=== PATIENT | female | born 1955 | race African-American/Black ===

== ENCOUNTER 2021-12-07 05:03 | Observation (INO) | payer MEDICARE ==
[~2021-12-07] VITALS: Ht 157.5 cm; Wt 50.8 kg
[~2021-12-07 05:03] MED LIST: AMILORIDE HCL-1 EACH; AMLODIPINE BESYL5 MG PO; ATORVASTATIN CA20 MG PO; ETODOLAC300 MG PO; LIPITOR20 MG PO; LODINE; METFORMIN HCL500 MG PO; METOPROLOL SUCC50 MG PO; NEURONTIN300 MG PO; VICODIN HP 10-1 EAC1 PO
[2021-12-07] MEDS ORDERED: SODIUM CHLORIDE 0.9% 50ML 100 ML ONE (05:58)
[2021-12-07 06:03] LABS: BASOPHILS % 0.3 % (0.0-1.0); EOSINOPHILS # (AUTO) 0.1 (0.0-0.4); EOSINOPHILS % 0.7 % (0.0-6.0); HEMATOCRIT 38.4 % (34.2-44.1); HEMOGLOBIN 12.1 g/dL (12.0-16.0); LYMPHOCYTES # (AUTO) 2.4 (1.0-3.2); LYMPHOCYTES % 20.6 % (18.0-39.1); MEAN CORPUSCULAR HEMOGLOBIN 28.1 pg (28-32); MEAN CORPUSCULAR HGB CONC 31.5 g/dL (31-35); MEAN CORPUSCULAR VOLUME 89.1 fL (81-99); MONOCYTES # (AUTO) 0.8 (0.2-0.8); MONOCYTES % 6.6 % (4.4-11.3); NEUTROPHILS # (AUTO) 8.4 (2.1-6.9); NEUTROPHILS % 71.5 % (38.7-80.0); PLATELET COUNT 413 x10e3/uL (140-360); RED BLOOD COUNT 4.31 x10e6/uL (3.6-5.1); RED CELL DISTRIBUTION WIDTH 12.8 % (11.7-14.4)
[2021-12-07] MEDS ORDERED: CELECOXIB 200 MG CAP ONE (06:12)
[2021-12-07] MEDS ORDERED: DEXAMETHASONE SOD PHOS 10 MG/1 ML VIAL ONE (06:12)
[2021-12-07] MEDS ORDERED: GABAPENTIN 300 MG CAP ONE (06:13)
[2021-12-07 06:21] LABS: ANION GAP 14.8 mmol/L (8-16); CALCIUM 10.3 mg/dL (8.4-10.2); CREATININE, SERUM 0.7 mg/dL (0.57-1.11); POTASSIUM 3.8 mmol/L (3.5-5.1)
[2021-12-07] MEDS ORDERED: SODIUM CHLORIDE 0.9% 500ML 500 ML ONE (06:52)
[2021-12-07] MEDS ORDERED: Vancomycin IV 1,000 MG ONE (06:52)
[2021-12-07] MEDS ORDERED: TRANEXAMIC ACID 1,000 MG/10 ML ML ONE (06:53)
[2021-12-07] MEDS ORDERED: ROPIVACAINE 246.25 MG, EPINEPHRINE HCL 1:1000 1ML 0.5 MG, CLONIDINE HCL 0.08 MG, KETORO... INJ ONE ×5 (08:00)
[2021-12-07] MEDS ORDERED: DIPHENHYDRAMINE HCL INJ 50 MG/ML VIAL IV PRN (09:15)
[2021-12-07] MEDS ORDERED: KETOROLAC TROMETHAMINE 30 MG/ML VIAL IV PRN (09:15)
[2021-12-07] MEDS ORDERED: SODIUM CHLORIDE 0.9% 1000ML 1,000 ML IV SCH (09:15)
[2021-12-07] MEDS ORDERED: ONDANSETRON HCL INJ 2MG/ML 2ML 2 MG/ML VIAL IV PRN (09:15)
[2021-12-07] MEDS ORDERED: ACETAMINOPHEN 650 MG SUPP PR PRN (09:15)
[2021-12-07] MEDS ORDERED: HYDROCODONE/APAP 5MG-325MG TAB PO PRN (09:15)
[2021-12-07] MEDS ORDERED: DOCUSATE SODIUM 100 MG CAP PO PRN (09:15)
[2021-12-07 11:26] VITALS: BP 138/66
[2021-12-07 11:42] VITALS: BP 138/66
[2021-12-07] MEDS: HYDROCODONE/APAP 7.5MG-325MG 1 EA TAB PO PRN ×2 (12:04→17:54)
[2021-12-07] MEDS ORDERED: BUPIVACAINE HCL 0.5% INJ 30 ML VIAL INJ ONE (13:14)
[2021-12-07] MEDS ORDERED: LIDOCAINE 2% /EPINEPHRINE 20 ML SDV INJ ONE (13:14)
[2021-12-07] MEDS ORDERED: PROPOFOL IV EMULSION 10 MG/ML 20 ML VIAL ONE (13:23)
[2021-12-07] MEDS ORDERED: POVIDONE IODINE 0.05% 0.05 % ML PO ONE (13:23)
[2021-12-07 13:34] LABS: BASOPHILS % 0.1 % (0.0-1.0); HEMATOCRIT 32.3 % (34.2-44.1); HEMOGLOBIN 10.2 g/dL (12.0-16.0); LYMPHOCYTES # (AUTO) 0.8 (1.0-3.2); LYMPHOCYTES % 5.6 % (18.0-39.1); MEAN CORPUSCULAR HEMOGLOBIN 27.9 pg (28-32); MEAN CORPUSCULAR HGB CONC 31.6 g/dL (31-35); MEAN CORPUSCULAR VOLUME 88.3 fL (81-99); MONOCYTES # (AUTO) 0.2 (0.2-0.8); MONOCYTES % 1.7 % (4.4-11.3); NEUTROPHILS # (AUTO) 12.4 (2.1-6.9); NEUTROPHILS % 92.2 % (38.7-80.0); PLATELET COUNT 402 x10e3/uL (140-360); RED BLOOD COUNT 3.66 x10e6/uL (3.6-5.1); RED CELL DISTRIBUTION WIDTH 12.8 % (11.7-14.4)
[2021-12-07] MEDS ORDERED: FENTANYL CITRATE/PF 100MCG/2 ML INJ ONE (13:37)
[2021-12-07] MEDS ORDERED: MIDAZOLAM HCL 2 MG/2 ML VIAL ONE (13:37)
[2021-12-07 13:55] LABS: CALCIUM 9.8 mg/dL (8.4-10.2); CREATININE, SERUM 0.81 mg/dL (0.57-1.11)
[2021-12-07 15:42] VITALS: BP 138/62
[2021-12-07] MEDS ORDERED: Cefazolin 1 GM in SODIUM CHLORIDE 0.9% 50ML 50 ML IV SCH (16:00)
[2021-12-07] MEDS ORDERED: ASPIRIN 325 MG TAB PO SCH (17:00)
[2021-12-07] MEDS ORDERED: CELECOXIB 100 MG CAP PO SCH (17:00)
[2021-12-07] MEDS ORDERED: ONDANSETRON HCL 4 MG ORAL DISINTEGRATING TAB PO PRN (18:00)
[2021-12-07] MEDS ORDERED: ACETAMINOPHEN 1000 MG/100 ML IV PRN (18:00)
[2021-12-07] MEDS ORDERED: ZOLPIDEM TARTRATE 5 MG TAB PO PRN (21:00)
[2021-12-08] MEDS ORDERED: CELECOXIB 200 MG CAP PO SCH (09:00)
== END 2021-12-07 18:27 | disposition home or self-care (01) ==
LOC: OR 05:03 → PACU V 10:05 → MED/SURG 11:10
PROVIDERS: ADMIT Specialist; ATTEND Specialist
DX: M16.0 Bilateral primary osteoarthritis of hip (principal); Z20.822 Contact with and (suspected) exposure to COVID-19; Z01.818 Encounter for other preprocedural examination; I10 Essential (primary) hypertension; E78.5 Hyperlipidemia, unspecified; D64.9 Anemia, unspecified; F17.210 Nicotine dependence, cigarettes, uncomplicated; E11.9 Type 2 diabetes mellitus without complications; E78.00 Pure hypercholesterolemia, unspecified; M85.80 Other specified disorders of bone density and structure, unspecified site; E11.42 Type 2 diabetes mellitus with diabetic polyneuropathy; G89.29 Other chronic pain
CPT/HCPCS: 27130; 36415; 71046; 72170; 80048; 82948; 85025; 86850; 86900; 86920 ×2; 93005; 97116; 97139; 97162; 97530; C1713; C1776 ×2; G0378; J0171; J0690; J1100; J1885; J2001; J2250; J2704; J2795; J3010; J3370; J7030; J7040; U0002

== ENCOUNTER → 2022-04-07 | Day surgery (SDC) | payer MEDICARE ==
[2022-04-05 12:56] LABS: BASOPHILS % 0.2 % (0.0-1.0); EOSINOPHILS # (AUTO) 0.1 (0.0-0.4); EOSINOPHILS % 1.2 % (0.0-6.0); HEMATOCRIT 36.5 % (34.2-44.1); HEMOGLOBIN 10.9 g/dL (12.0-16.0); LYMPHOCYTES # (AUTO) 4.2 (1.0-3.2); LYMPHOCYTES % 35.9 % (18.0-39.1); MEAN CORPUSCULAR HEMOGLOBIN 27.1 pg (28-32); MEAN CORPUSCULAR HGB CONC 29.9 g/dL (31-35); MEAN CORPUSCULAR VOLUME 90.8 fL (81-99); MONOCYTES % 8.4 % (4.4-11.3); NEUTROPHILS # (AUTO) 6.3 (2.1-6.9); PLATELET COUNT 419 x10e3/uL (140-360); RED BLOOD COUNT 4.02 x10e6/uL (3.6-5.1)
[2022-04-05 13:35] LABS: ALBUMIN 3.5 g/dL (3.5-5.0); ALBUMIN/GLOBULIN RATIO 0.9 (0.8-2.0); ANION GAP 12.9 mmol/L (8-16); CALCIUM 9.4 mg/dL (8.4-10.2); CREATININE, SERUM 0.92 mg/dL (0.57-1.11); POTASSIUM 4.9 mmol/L (3.5-5.1)
[~2022-04-07] MED LIST changes: +BUPIVACAINE HC 0.75% PF 10ML VIAL INJ ONE; +CENTRUM COMPLE1 EACH PO; +DEXAMETHASONE SOD PHOS INJ 4 MG/ML SDV ONE; +FENTANYL CITRATE/PF 100MCG/2 ML INJ ONE; +FEROSUL325 MG PO; +GLYCOPYRROLATE INJ 0.2 MG/ML VIAL ONE; +LIDOCAINE 2% /EPINEPHRINE 20 ML SDV INJ ONE; +LIDOCAINE HCL 2% LOCAL INJ 5 ML SDV VIAL INJ ONE; +MIDAZOLAM HCL 2 MG/2 ML VIAL ONE; +NEOSTIGMINE 1 MG/ML 10ML VIAL ONE; +ONDANSETRON HCL INJ 2MG/ML 2ML 2 MG/ML VIAL ONE; +POVIDONE IODINE 0.05% 0.05 % ML PO ONE; +PROPOFOL IV EMULSION 10 MG/ML 20 ML VIAL ONE; +ROCURONIUM BROMIDE 10 MG/ML 5ML VIAL IV ONE; +SEVOFLURANE INHAL SOLN 250 ML PEN BTL ONE
[2022-04-07 12:30] VITALS: BP 159/73
== END | disposition home or self-care (01) ==
LOC: OR 08:17
PROVIDERS: ATTEND Surgery
DX: K11.23 Chronic sialoadenitis (principal); E11.9 Type 2 diabetes mellitus without complications; I10 Essential (primary) hypertension; F41.9 Anxiety disorder, unspecified; M19.90 Unspecified osteoarthritis, unspecified site; D64.9 Anemia, unspecified; E78.5 Hyperlipidemia, unspecified; Z01.810 Encounter for preprocedural cardiovascular examination; Z20.822 Contact with and (suspected) exposure to COVID-19
CPT/HCPCS: 0223U; 36415 ×2; 42699; 80053; 82948; 85025; 88304; 93005; C1713; J1100; J2001 ×2; J2250; J2405; J2704; J2710; J3010

== ENCOUNTER → 2022-06-21 | Day surgery (SDC) | payer MEDICARE ==
[2022-06-18 10:21] LABS: BASOPHILS # (AUTO) 0.1 (0.0-0.1); BASOPHILS % 0.7 % (0.0-1.0); EOSINOPHILS # (AUTO) 0.1 (0.0-0.4); EOSINOPHILS % 1.3 % (0.0-6.0); HEMATOCRIT 36.5 % (34.2-44.1); HEMOGLOBIN 11.3 g/dL (12.0-16.0); LYMPHOCYTES # (AUTO) 2.7 (1.0-3.2); LYMPHOCYTES % 27.9 % (18.0-39.1); MEAN CORPUSCULAR HEMOGLOBIN 28.8 pg (28-32); MEAN CORPUSCULAR VOLUME 93.1 fL (81-99); MONOCYTES # (AUTO) 0.8 (0.2-0.8); MONOCYTES % 8.5 % (4.4-11.3); NEUTROPHILS % 61.3 % (38.7-80.0); PLATELET COUNT 301 x10e3/uL (140-360); RED BLOOD COUNT 3.92 x10e6/uL (3.6-5.1); RED CELL DISTRIBUTION WIDTH 14.5 % (11.7-14.4)
[2022-06-18 10:29] LABS: ALBUMIN 4.1 g/dL (3.5-5.0); ALBUMIN/GLOBULIN RATIO 1.2 (0.8-2.0); ANION GAP 16.2 mmol/L (8-16); CALCIUM 9.6 mg/dL (8.4-10.2); CREATININE, SERUM 0.78 mg/dL (0.57-1.11); POTASSIUM 5.2 mmol/L (3.5-5.1)
[~2022-06-21] MED LIST changes: +ATROPINE SULFATE 1 MG/ML VIAL ONE; +BUPIVACAINE 0.25% 30ML SDV ONE; -BUPIVACAINE HC 0.75% PF 10ML VIAL INJ ONE; +HYDROCODONE/APAP 7.5MG-325MG 1 EA TAB ONE; -LIDOCAINE 2% /EPINEPHRINE 20 ML SDV INJ ONE; +MELOXICAM7.5 MG PO; +METHOTREXATE2.5 MG PO; -MIDAZOLAM HCL 2 MG/2 ML VIAL ONE; +PREDNISONE10 MG PO
[2022-06-21 11:40] VITALS: BP 163/84
== END | disposition home or self-care (01) ==
LOC: OR 06:51
PROVIDERS: ATTEND Surgery
DX: I89.8 Other specified noninfective disorders of lymphatic vessels and lymph nodes (principal); E11.9 Type 2 diabetes mellitus without complications; I10 Essential (primary) hypertension; E78.5 Hyperlipidemia, unspecified; M06.9 Rheumatoid arthritis, unspecified; M19.90 Unspecified osteoarthritis, unspecified site; M54.9 Dorsalgia, unspecified; F32.A Depression, unspecified; Z01.812 Encounter for preprocedural laboratory examination; Z20.822 Contact with and (suspected) exposure to COVID-19; Z79.84 Long term (current) use of oral hypoglycemic drugs; Z79.1 Long term (current) use of non-steroidal anti-inflammatories (NSAID); Z79.899 Other long term (current) drug therapy
CPT/HCPCS: 0223U; 36415 ×2; 42440; 80053; 82948; 85025; 88304; J3010; J0461; J1100; J2001; J2405; J2710

== ENCOUNTER 2023-01-04 15:09 | Outpatient (RCR) | payer MEDICARE ==
[~2023-01-04 15:09] MED LIST changes: -ATROPINE SULFATE 1 MG/ML VIAL ONE; -BUPIVACAINE 0.25% 30ML SDV ONE; -DEXAMETHASONE SOD PHOS INJ 4 MG/ML SDV ONE; -FENTANYL CITRATE/PF 100MCG/2 ML INJ ONE; -GLYCOPYRROLATE INJ 0.2 MG/ML VIAL ONE; -HYDROCODONE/APAP 7.5MG-325MG 1 EA TAB ONE; -LIDOCAINE HCL 2% LOCAL INJ 5 ML SDV VIAL INJ ONE; -NEOSTIGMINE 1 MG/ML 10ML VIAL ONE; -ONDANSETRON HCL INJ 2MG/ML 2ML 2 MG/ML VIAL ONE; -POVIDONE IODINE 0.05% 0.05 % ML PO ONE; -PROPOFOL IV EMULSION 10 MG/ML 20 ML VIAL ONE; -ROCURONIUM BROMIDE 10 MG/ML 5ML VIAL IV ONE; -SEVOFLURANE INHAL SOLN 250 ML PEN BTL ONE
== END 2023-01-07 ==
LOC: PT 15:09
PROVIDERS: ATTEND Physician Assistant
DX: M54.41 Lumbago with sciatica, right side (principal)

== ENCOUNTER 2023-01-19 12:54 | Outpatient (RCR) | payer MEDICARE | END 2023-02-06 | LOC: PT 12:54 | PROVIDERS: ATTEND Physician Assistant | DX: M54.41 Lumbago with sciatica, right side (principal) ==